=== PATIENT | female | born 1940 | race African-American/Black ===

== ENCOUNTER 2020-10-01 08:11 | Emergency (ER) | payer MEDICARE, SELFPAY ==
[~2020-10-01] VITALS: Ht 165.1 cm; Wt 76.7 kg
[2020-10-01 08:17] VITALS: Ht 165.1 cm; Wt 76.7 kg
[2020-10-01 09:03] LABS: BASOPHIL % 1.3 % (0.2-1.3); PLATELET COUNT 259 x10^3mcL (179-408); RED CELL DISTRIBUTION WIDTH 13.9 % (12.3-17.7)
[2020-10-01 09:13] LABS: CALCIUM 9.7 mg/dL (8.5-10.1); CARBON DIOXIDE 28.2 mmol/L (21-32); CHLORIDE SERUM 102 mmol/L (98-107); CREATININE SERUM 0.8 mg/dL (0.6-1.0); GLUCOSE SERUM 100 mg/dL (74-106); POTASSIUM SERUM 3.6 mmol/L (3.5-5.1); SODIUM SERUM 137 mmol/L (136-145)
[2020-10-01 09:17] LABS: ALBUMIN 3.4 g/dL (3.4-5.0); ALKALINE PHOSPHATASE 134 U/L (46-116); ALT/SGPT 25 U/L (14-59); AST/SGOT 16 U/L (15-37); BILIRUBIN TOTAL 0.5 mg/dL (0.20-1.00); TOTAL PROTEIN, SERUM 6.8 g/dL (6.4-8.2)
[2020-10-01] MEDS ORDERED: AZITHROMYCIN250 M1 PO (09:59)
[2020-10-01] MEDS ORDERED: PROMETHAZINE-D473 M1 PO (09:59)
[2020-10-01 10:30] VITALS: BP 149/86
== END 2020-10-01 10:30 | disposition home or self-care (01) ==
LOC: ED 08:11
PROVIDERS: Emergency Medicine
DX: J20.9 Acute bronchitis, unspecified (principal); Z20.822 Contact with and (suspected) exposure to COVID-19; Z88.2 Allergy status to sulfonamides
CPT/HCPCS: 83880; U0003